=== PATIENT | female | born 1985 | race Hispanic/Latino ===

== ENCOUNTER 2018-04-02 14:09 | Emergency (ER) | payer OTHER, SELFPAY ==
[2018-04-02] MEDS ORDERED: Ondansetron ODT 4 MG TAB ONE (14:28)
[2018-04-02 15:03] LABS: Bilirubin Negative (Negative); Blood, Urine Moderate (Negative); Clarity CLEAR (Clear); Glucose, Urine (Dipstick) Negative (Negative); Leukocyte Negative (Negative); Nitrite Negative (Negative); Protein, Urine (Dipstick) 30 mg/dL (Neg-Trace); Specific Gravity, Urine 1.022 (1.002-1.036); pH, Urine 8.5 (5.0-9.0)
[2018-04-02 15:04] LABS: Bacteria/HPF None Seen HPF (None Seen); Hyaline Casts/LPF 4-6 HYALINE CAST LPF (0-3 Hyaline); Pathc Cast-AUWi Flag 0.43 (0-2.49); Pregnancy Test - Urine (BHCG) Negative (Negative); Pregu Control Background? CLEAR/WHITE (CLR/WHITE); Pregu Control Bar Appear? YES (CONTROL BAR); RBC/HPF 21-50 HPF (0-3); Specific Gravity 1.022 (1.002-1.036); WBC/HPF 0-3 HPF (0-3)
[2018-04-02 15:12] LABS: Transitional Epithelial 0-3 HPF (0-3)
[2018-04-02 15:32] LABS: #Lymphocytes 1.2 thou/uL (1.20-3.40); #Monocytes 0.5 thou/uL (0.11-0.59); #Neutrophils 10.1 thou/uL (1.40-6.50); %Basophils 0.2 % (0.0-1.0); %Eosinophils 0.1 % (0.0-10.0); %Monocytes 3.9 % (0.0-10.0); %Neutrophils 85.8 % (42.0-75.0); Mean Corpuscular HGB CONC 34.8 g/dL (32.0-36.0); Mean Corpuscular Hemoglobin 34.3 pg (27.0-31.0); Mean Corpuscular Volume 98.6 fL (78.0-98.0); Mean Platelet Volume 9.2 fL (7.4-10.4); Platelet Count 260 thou/uL (130-400); Red Blood Cell (RBC) Count 4.07 mill/uL (4.20-5.40); White Blood Cell (WBC) Count 11.8 thou/uL (4.8-10.8)
[2018-04-02 15:51] LABS: ALT (SGPT) 25 U/L (8-55); AST (SGOT) 22 U/L (5-34); Alkaline Phosphatase 90 U/L (40-150); Anion Gap 17 mmol/L (10-20); BUN (Urea Nitrogen) 9 mg/dL (7.0-18.7); Bilirubin, Total 0.8 mg/dL (0.2-1.2); Calc. Creatinine Clearance 0 mL/min (70-130); Calcium 9.9 mg/dL (7.8-10.44); Carbon Dioxide 19 mmol/L (22-29); Chloride 107 mmol/L (98-107); Estimated GFR-MDRD 85; Globulin 3.7 g/dL (2.4-3.5); Glucose 116 mg/dL (70-105); Lipase 5 U/L (8-78); Protein, Total 8.7 g/dL (6.0-8.3); Sodium 140 mmol/L (136-145)
[2018-04-02 15:56] LABS: Potassium 2.9 mmol/L (3.5-5.1)
== END 2018-04-02 17:45 | disposition home or self-care (01) ==
LOC: ERS 14:09
DX: E86.0 Dehydration (principal); E87.6 Hypokalemia; R11.2 Nausea with vomiting, unspecified
CPT/HCPCS: 80053; 81003; 81015; 81025; 83690; 85025; 96360; Q0162

== ENCOUNTER 2024-06-03 14:31 | Emergency (ER) | payer OTHER, SELFPAY ==
[2024-06-03] MEDS ORDERED: Ibuprofen 200 MG TAB ONE (15:59)
[2024-06-03] MEDS ORDERED: Dexamethasone 4 MG TAB ONE (16:03)
== END 2024-06-03 17:14 | disposition home or self-care (01) ==
LOC: ERS 14:31
DX: B34.9 Viral infection, unspecified (principal)
CPT/HCPCS: 87081; 87428; 87430; 99283; J8540